=== PATIENT | male | born 1955 | race Caucasian/White ===

== ENCOUNTER → 2016-10-07 | Outpatient (CLI) | payer OTHER ==
[~2016-10-07] MED LIST: ACETAMINOPHEN325 M1 PO; ACETAMINOPHEN650 M5 PO; ASPIRIN EC81 M1 PO; ASPIRIN81 M2; B12INJ INJECTION; EFFIENT10 MG PO; LYRICA 75 MG CA75 MG PO; MELATONIN10 M1 PO; NEURONTIN 300300 M1 PO; NOHOMEMEDICATIONS; PAU D ARCO PO; SIMVASTATIN40 MG PO; SORINE 80 MG TA80 M1 PO; UNISOM50 MG PO
== END ==
LOC: ULTRA 07:14
DX: E04.2 Nontoxic multinodular goiter (principal)